=== PATIENT | male | born 1960 | race Caucasian/White ===

== ENCOUNTER 2018-05-24 11:26 | Inpatient (IN) | payer MEDICARE, OTHER ==
[~2018-05-24 11:26] MED LIST: DEXTROSE 50% 50 ML SYRINGE
[2018-05-24] MEDS ORDERED: DEXTROSE 50% 50 ML SYRINGE (11:44)
[2018-05-24 11:48] LABS: ADD MAN DIFF? NO
[2018-05-24 11:51] LABS: EOSINOPHILS # 0.1 10^3/ul (0.0-0.5); EOSINOPHILS % 2.2 % (0.0-7.0); HEMATOCRIT 36.2 % (42.0-52.0); HEMOGLOBIN 11.4 g/dl (14.0-18.0); LYMPHOCYTES # 1.1 10^3/ul (0.8-2.9); LYMPHOCYTES % 27.8 % (15.0-51.0); MEAN CORPUSCULAR HGB CONC 31.5 g/dl (32.0-37.0); MEAN CORPUSCULAR VOLUME 98.4 fl (82.0-101.0); MEAN PLATELET VOLUME 12.1 fl (7.4-10.4); MONOCYTE # 0.4 10^3/ul (0.3-0.9); MONOCYTES % 9.4 % (0.0-11.0); NEUTROPHIL # 2.4 10^3/ul (1.6-7.5); NEUTROPHILS % 59.4 % (39.0-77.0); PLATELET COUNT 127 10^3/UL (140-415); RED BLOOD COUNT 3.68 10^6/ul (4.70-6.10); RED CELL DISTRIBUTION WIDTH 15.5 % (11.5-14.5)
[2018-05-24 12:11] LABS: INR 1.14; PROTIME 14.7 Sec (11.9-14.9); PT RATIO 1.1
[2018-05-24 12:12] LABS: ALANINE AMINOTRANSFERASE 14 IU/L (13-69); ALBUMIN 4.3 g/dl (3.3-4.9); ALBUMIN/GLOBULIN RATIO 1.48; ALKALINE PHOSPHATASE 48 IU/L (42-121); ANION GAP 11 (5-13); ASPARTATE AMINO TRANSFERASE 13 IU/L (15-46); BILIRUBIN,INDIRECT 0.6 mg/dl (0-1.1); BILIRUBIN,TOTAL 0.6 mg/dl (0.2-1.3); BLOOD UREA NITROGEN 39 mg/dl (7-20); CALCIUM 9.7 mg/dl (8.4-10.2); CARBON DIOXIDE 33 mmol/L (21-31); CHLORIDE 94 mmol/L (97-110); CREATININE 7.76 mg/dl (0.61-1.24); Estimated GFR 7 mL/min (>60); GLUCOSE 224 mg/dl (70-220); POTASSIUM 5.2 mmol/L (3.5-5.1); SODIUM 138 mmol/L (135-144); TOTAL PROTEIN 7.2 g/dl (6.1-8.1)
[2018-05-24] MEDS: LIDOCAINE 2%/EPI MPF (SDV) 20 ML VIAL INJ (12:19)
[2018-05-24] MEDS ORDERED: ACETAMINOPHEN 325 MG TAB PO ×2 (13:00→18:30)
[2018-05-24] MEDS ORDERED: ONDANSETRON 4 MG INJ IV ×2 (13:00→18:30)
[2018-05-24 13:08] LABS: HEMATOCRIT 20.8 % (42.0-52.0)
[2018-05-24 13:13] LABS: HEMOGLOBIN 6.4 g/dl (14.0-18.0)
[2018-05-24 13:38] LABS: CREATINE KINASE 29 IU/L (23-200)
[2018-05-24 13:51] LABS: CK INDEX 2.3
[2018-05-24 13:52] LABS: CK-MB 0.68 ng/ml (0.0-2.4); TROPONIN-I < 0.012 ng/ml (0.000-0.120)
[2018-05-24] MEDS: NA BICARBONATE 8.4% 50 ML SYG IV (14:23)
[2018-05-24] MEDS: CA CHLORIDE 10% 10 ML SYRINGE IV (14:23)
[2018-05-24 14:48] LABS: IMMEDIATE SPIN CROSSMATCH 1 1
[2018-05-24] MEDS ORDERED: NACL 0.9% 3 ML SYG IV (18:30)
[2018-05-24] MEDS ORDERED: DOCUSATE SODIUM 100 MG CAP PO (18:30)
[2018-05-24] MEDS ORDERED: BISACODYL (EC) 5 MG TAB PO (18:30)
[2018-05-24] MEDS ORDERED: DEXTROSE 50% 50 ML SYRINGE IV ×2 (19:00)
[2018-05-24] MEDS ORDERED: GLUCOSE GEL 15 GRAM TUBE PO ×2 (19:00)
[2018-05-24] MEDS ORDERED: GLUCOSE GEL 15 GRAM TUBE BUCCAL (19:00)
[2018-05-24] MEDS ORDERED: GLUCAGON 1 MG INJ IM (19:00)
[2018-05-24] MEDS: LOSARTAN 50 MG TAB PO (22:33)
[2018-05-24] MEDS: LABETALOL 100 MG TAB PO (22:38)
[2018-05-24] MEDS: INSULIN ASPART [NOVOLOG] 3 ML PEN SC (22:57)
[2018-05-25] MEDS: ACCU-CHEK XX (03:00)
[2018-05-25] MEDS: PANTOPRAZOLE (EC) 40 MG TAB PO (05:51)
[2018-05-25 06:15] LABS: ADD MAN DIFF? NO
[2018-05-25 06:18] LABS: WHITE BLOOD COUNT 4.3 10^3/ul (4.8-10.8)
[2018-05-25 06:18] LABS: ABNORMAL IP MESSAGE 1; BASOPHILS % 0.9 % (0.0-2.0); EOSINOPHILS # 0.1 10^3/ul (0.0-0.5); EOSINOPHILS % 2.1 % (0.0-7.0); HEMATOCRIT 27.1 % (42.0-52.0); HEMOGLOBIN 8.5 g/dl (14.0-18.0); LYMPHOCYTES # 1.1 10^3/ul (0.8-2.9); LYMPHOCYTES % 25.4 % (15.0-51.0); MEAN CORPUSCULAR HEMOGLOBIN 30.7 pg (29.0-33.0); MEAN CORPUSCULAR HGB CONC 31.4 g/dl (32.0-37.0); MEAN CORPUSCULAR VOLUME 97.8 fl (82.0-101.0); MEAN PLATELET VOLUME 12.9 fl (7.4-10.4); MONOCYTE # 0.5 10^3/ul (0.3-0.9); MONOCYTES % 11.4 % (0.0-11.0); NEUTROPHIL # 2.6 10^3/ul (1.6-7.5); PLATELET COUNT 99 10^3/UL (140-415); POSITIVE DIFF @See below; RED BLOOD COUNT 2.77 10^6/ul (4.70-6.10); RED CELL DISTRIBUTION WIDTH 15.6 % (11.5-14.5)
[2018-05-25 07:05] LABS: ALANINE AMINOTRANSFERASE 13 IU/L (13-69); ALBUMIN 3.3 g/dl (3.3-4.9); ALKALINE PHOSPHATASE 34 IU/L (42-121); ANION GAP 11 (5-13); ASPARTATE AMINO TRANSFERASE 10 IU/L (15-46); BILIRUBIN,INDIRECT 0.4 mg/dl (0-1.1); BILIRUBIN,TOTAL 0.4 mg/dl (0.2-1.3); BLOOD UREA NITROGEN 55 mg/dl (7-20); CALCIUM 9.3 mg/dl (8.4-10.2); CARBON DIOXIDE 28 mmol/L (21-31); CHLORIDE 104 mmol/L (97-110); CREATININE 9.38 mg/dl (0.61-1.24); Estimated GFR 6 mL/min (>60); GLUCOSE 54 mg/dl (70-220); POTASSIUM 5.6 mmol/L (3.5-5.1); SODIUM 143 mmol/L (135-144); TOTAL PROTEIN 5.5 g/dl (6.1-8.1)
[2018-05-25] MEDS: CALCIUM ACETATE 667 MG CAP PO ×3 (07:52→17:08)
[2018-05-25] MEDS: LOSARTAN 50 MG TAB PO ×2 (07:53→20:58)
[2018-05-25] MEDS: INSULIN ASPART [NOVOLOG] 3 ML PEN SC ×4 (08:00→21:09)
[2018-05-25] MEDS: MULTIVIT/CA CARB/B CMPLX/FA TAB PO (08:04)
[2018-05-25] MEDS: AMLODIPINE 10 MG TAB PO (08:05)
[2018-05-25] MEDS: FOLIC ACID 1 MG TAB PO (08:05)
[2018-05-25] MEDS: LABETALOL 100 MG TAB PO ×3 (09:14→20:58)
[2018-05-25] MEDS: hydrALAzine 20 MG INJ IV (12:04)
[2018-05-25] MEDS: NA POLYST SULFON 15 GM/60 ML BTL PO (17:30)
[2018-05-25 19:40] LABS: CREATINE KINASE 60 IU/L (23-200)
[2018-05-25 19:54] LABS: CK INDEX 2.4; CK-MB 1.46 ng/ml (0.0-2.4); TROPONIN-I < 0.012 ng/ml (0.000-0.120)
[2018-05-26 01:17] LABS: CREATINE KINASE 59 IU/L (23-200)
[2018-05-26 01:29] LABS: CK INDEX 2.8; CK-MB 1.63 ng/ml (0.0-2.4); TROPONIN-I < 0.012 ng/ml (0.000-0.120)
[2018-05-26] MEDS: ACCU-CHEK XX (02:00)
[2018-05-26] MEDS: hydrALAzine 20 MG INJ IV ×2 (04:28→16:57)
[2018-05-26] MEDS: PANTOPRAZOLE (EC) 40 MG TAB PO (05:25)
[2018-05-26 06:30] LABS: ADD MAN DIFF? NO
[2018-05-26 06:39] LABS: ABNORMAL IP MESSAGE 1; BASOPHILS % 0.5 % (0.0-2.0); EOSINOPHILS # 0.1 10^3/ul (0.0-0.5); HEMATOCRIT 25.4 % (42.0-52.0); HEMOGLOBIN 8.1 g/dl (14.0-18.0); LYMPHOCYTES # 1.1 10^3/ul (0.8-2.9); LYMPHOCYTES % 26.4 % (15.0-51.0); MEAN CORPUSCULAR HEMOGLOBIN 30.9 pg (29.0-33.0); MEAN CORPUSCULAR HGB CONC 31.9 g/dl (32.0-37.0); MEAN CORPUSCULAR VOLUME 96.9 fl (82.0-101.0); MEAN PLATELET VOLUME 13.4 fl (7.4-10.4); MONOCYTE # 0.4 10^3/ul (0.3-0.9); MONOCYTES % 8.6 % (0.0-11.0); NEUTROPHIL # 2.5 10^3/ul (1.6-7.5); NEUTROPHILS % 61.5 % (39.0-77.0); PLATELET COUNT 92 10^3/UL (140-415); POSITIVE DIFF @See below; RED BLOOD COUNT 2.62 10^6/ul (4.70-6.10); RED CELL DISTRIBUTION WIDTH 15.5 % (11.5-14.5)
[2018-05-26 06:39] LABS: WHITE BLOOD COUNT 4.1 10^3/ul (4.8-10.8)
[2018-05-26 07:08] LABS: CK-MB 1.55 ng/ml (0.0-2.4); TROPONIN-I < 0.012 ng/ml (0.000-0.120)
[2018-05-26 07:21] LABS: ANION GAP 15 (5-13); Estimated GFR 5 mL/min (>60)
[2018-05-26 07:22] LABS: BLOOD UREA NITROGEN 71 mg/dl (7-20); CALCIUM 9.7 mg/dl (8.4-10.2); CARBON DIOXIDE 24 mmol/L (21-31); CHLORIDE 102 mmol/L (97-110); CREATININE 11.57 mg/dl (0.61-1.24); GLUCOSE 107 mg/dl (70-220); POTASSIUM 5.6 mmol/L (3.5-5.1); SODIUM 141 mmol/L (135-144)
[2018-05-26 07:29] LABS: CK INDEX 2.4; CREATINE KINASE 65 IU/L (23-200)
[2018-05-26] MEDS: CALCIUM ACETATE 667 MG CAP PO ×3 (08:00→17:29)
[2018-05-26] MEDS: INSULIN ASPART [NOVOLOG] 3 ML PEN SC ×3 (08:00→17:28)
[2018-05-26 08:03] LABS: CHOL/HDL RATIO 3.1 RATIO; HDL CHOLESTEROL 30 mg/dl (28-71); LDL CHOLESTEROL,CALCULATED 33 mg/dl; TRIGLYCERIDES 158 mg/dl (0-149)
[2018-05-26 08:03] LABS: CHOLESTEROL 95 mg/dl (100-200)
[2018-05-26] MEDS: MULTIVIT/CA CARB/B CMPLX/FA TAB PO (11:03)
[2018-05-26] MEDS: AMLODIPINE 10 MG TAB PO (11:04)
[2018-05-26] MEDS: FOLIC ACID 1 MG TAB PO (11:04)
[2018-05-26] MEDS: LABETALOL 100 MG TAB PO ×2 (11:05→16:57)
[2018-05-26] MEDS: LOSARTAN 50 MG TAB PO (11:06)
[2018-05-26 13:27] LABS: HEPATITIS B SURFACE ANTIGEN NEGATIVE (NEGATIVE)
[2018-05-26] MEDS: BUPIVACAINE 0.5%/EPI (SDV) 30 ML INJ INJ (15:00)
[2018-05-26] MEDS: DEXAMETHASONE 10 MG/ML 1 ML INJ IM (15:00)
[2018-05-26] MEDS: DEXAMETHASONE 4 MG/ML 5 ML INJ IM (15:30)
== END 2018-05-26 17:30 | disposition home or self-care (01) | DRG 252 ==
LOC: E/R 11:26 → 6WM 12:58
PROVIDERS: Pediatrics
PROC: 057F3ZZ Dilation of Left Cephalic Vein, Percutaneous Approach (ICD-10-PCS; principal; 2018-05-26 08:20)
PROC: 0X3 Anatomical Regions, Upper Extremities, Control (ICD-10-PCS; 2018-05-26 08:20)
PROC: B51WYZZ Fluoroscopy of Dialysis Shunt/Fistula using Other Contrast (ICD-10-PCS; 2018-05-26 08:20)
PROC: 5A1D70Z Performance of Urinary Filtration, Intermittent, Less than 6 Hours Per Day (ICD-10-PCS; 2018-05-26 08:20)
PROC: 30233N1 Transfusion of Nonautologous Red Blood Cells into Peripheral Vein, Percutaneous Approach (ICD-10-PCS; 2018-05-26 08:20)
DX: T82.838A Hemorrhage due to vascular prosthetic devices, implants and grafts, initial encounter (principal); N18.6 End stage renal disease; I12.0 Hypertensive chronic kidney disease with stage 5 chronic kidney disease or end stage renal disease; G93.1 Anoxic brain damage, not elsewhere classified; T82.858A Stenosis of other vascular prosthetic devices, implants and grafts, initial encounter; I95.9 Hypotension, unspecified; D64.9 Anemia, unspecified; R94.31 Abnormal electrocardiogram [ECG] [EKG]; E78.5 Hyperlipidemia, unspecified; E11.22 Type 2 diabetes mellitus with diabetic chronic kidney disease; R00.1 Bradycardia, unspecified; M79.641 Pain in right hand; E87.5 Hyperkalemia; Z99.2 Dependence on renal dialysis; Z79.82 Long term (current) use of aspirin; Z79.84 Long term (current) use of oral hypoglycemic drugs; Y83.2 Surgical operation with anastomosis, bypass or graft as the cause of abnormal reaction of the patient, or of later complication, without mention of misadventure at the time of the procedure
CPT/HCPCS: 36430; 36901; 36907; 71045; 80048; 80053; 80061; 82550; 82553; 82962; 84484; 85014; 85018; 85025; 85610; 85730; 86850; 86900; 86901; 86920; 87340; 90935; 93005; 93306; 93931; 95819; 99291-25

== ENCOUNTER → 2018-09-19 | Outpatient (CLI) | payer MEDICARE, OTHER ==
[2018-09-19 07:46] LABS: POTASSIUM 5.9 mmol/L (3.5-5.1)
== END | disposition home or self-care (01) ==
LOC: LAB 06:59
DX: E87.5 Hyperkalemia (principal)
CPT/HCPCS: 84132